=== PATIENT | female | born 1990 | race Caucasian/White ===

== ENCOUNTER 2018-03-15 10:14 | Outpatient (CLI) | payer OTHER ==
--- NOTE | 2018-03-15 13:39 | ULT ---
PELVIC ULTRASOUND WITH DOPPLER: (transabdominal, transvaginal, murray scale, color flow, and spectral Doppler) HISTORY: Early vaginal bleeding. FINDINGS: The uterus measure s16.7 x 7.7 x 10.2 cm. The right ovary measures 3.9 x 1.7 x 3.3 cm. The left ova ry measures 4.8 x 1.7 x 2.3 cm. Flow is demonstrated to both ovaries. A single live intrauterine gestation is seen with measurements corresponding to an estimated gestatio nal age of 10 weeks 4 days and VALARIE at 10/07/2018. The crown-rump length measures 3.18 cm. Gestationa l sac diameter 5.26 cm and yolk sac diameter 0.42 cm. heart rate measures 168 b.p.m. No free fluid is seen in the cul-de-sac. No subchorionic hemorrhage is seen. IMPRESSION: Single live intrauterine of 10 weeks 4 days estimated gestational age and estimated date of delivery at 10/07/2018. POS: [facility]
== END 2018-03-15 10:15 | disposition home or self-care (01) ==
LOC: ULT 10:14
PROVIDERS: ATTEND Midwife
DX: Z34.91 Encounter for supervision of normal pregnancy, unspecified, first trimester (principal); O20.9 Hemorrhage in early pregnancy, unspecified; Z3A.10 10 weeks gestation of pregnancy
CPT/HCPCS: 76856; 93976

== ENCOUNTER 2018-09-27 20:17 | Inpatient (IN) | payer OTHER ==
[~2018-09-27 20:17] MED LIST: Dexamethasone 20 MG/5 ML VIAL ONE; Ketorolac Tromethamine 30 MG/ML VIAL ONE; Ondansetron PF 4 MG/2 ML Vial ONE; Oxytocin 10 UNITS/ML VIAL ONE; PHENYLEPHRINE-NS 100 MCG/ML 10 ML SYRINGE ONE; PROPOFOL 200 MG/20 ML VIAL ONE; Phenylephrine HCL 10 MG/ML VIAL ONE; Succinylcholine Chloride 20 MG/ML 10 ml SYRINGE FS ONE
[2018-09-27] MEDS ORDERED: Ondansetron PF 4 MG/2 ML Vial IVP PRN ×2 (20:54→22:38)
[2018-09-27 20:59] VITALS: BMI 35.6
[2018-09-27] MEDS ORDERED: Bicitra 30 ML UDCUP PO SCH (21:00)
[2018-09-27] MEDS ORDERED: Lactated Ringer's 1,000 ML IV SCH ×2 (21:00)
[2018-09-27] MEDS ORDERED: CEFAZOLIN 2 GM in Premix Bag 1 BAG IVPB SCH (21:00)
[2018-09-27] MEDS ORDERED: Fentanyl 100 MCG/2 ML VIAL ONE ×2 (21:36→21:56)
[2018-09-27 21:41] LABS: Mean Corpuscular HGB CONC 34.6 g/dL (32.0-36.0); Mean Corpuscular Hemoglobin 31.3 pg (27.0-31.0); Mean Corpuscular Volume 90.2 fL (78.0-98.0); Mean Platelet Volume 8.6 fL (7.4-10.4); Platelet Count 105 thou/uL (130-400); RBC Distribution Width 13.6 % (11.5-14.5); Red Blood Cell (RBC) Count 4.15 mill/uL (4.20-5.40); White Blood Cell (WBC) Count 6.7 thou/uL (4.8-10.8)
[2018-09-27] MEDS ORDERED: Ondansetron PF 4 MG/2 ML Vial ONE (21:42)
[2018-09-27] MEDS ORDERED: Ketorolac Tromethamine 30 MG/ML VIAL ONE (21:42)
[2018-09-27] MEDS ORDERED: Dexamethasone 4 mg/ml Vial ONE (21:42)
[2018-09-27] MEDS ORDERED: Rocuronium Bromide 10 MG/ML (10ML VIAL) ONE (21:46)
[2018-09-27] MEDS ORDERED: Oxytocin 10 UNITS/ML VIAL ONE ×2 (21:49→22:11)
[2018-09-27] MEDS ORDERED: Morphine 4 MG/ML VIAL ONE ×2 (21:57→22:07)
[2018-09-27 22:18] LABS: Syphilis Antibody Nonreactive (Nonreactive); Syphilis Antibody Index 0.06 S/CO (<1.00 Non-Reactive)
[2018-09-27 22:36] LABS: Actual Bicarbonate (HCO3a) 24.9 mEq/L (22-28); Base Excess (BEa) -7.1 mEq/L (-2.0 to +3.0)
[2018-09-27] MEDS ORDERED: Ondansetron HCl/PF 4 MG/2 ML Vial IVP PRN (22:38)
[2018-09-27] MEDS ORDERED: Zolpidem Tartrate 5 MG TAB PO PRN (22:38)
[2018-09-27] MEDS ORDERED: diphenhydrAMINE 50 MG/ML VIAL IM PRN (22:38)
[2018-09-27] MEDS ORDERED: Promethazine HCl 25 MG/ML VIAL IM PRN (22:38)
[2018-09-27] MEDS ORDERED: L&D-Morphine 4 MG/ML VIAL SLOW IVP PRN (22:38)
[2018-09-27] MEDS ORDERED: Naloxone HCl 0.4 mg/ml Vial IV PRN (22:38)
[2018-09-27] MEDS ORDERED: diphenhydrAMINE 50 MG/ML VIAL IVP PRN (22:38)
[2018-09-27] MEDS ORDERED: diphenhydrAMINE 25 MG CAP PO PRN (22:38)
[2018-09-27] MEDS ORDERED: Meperidine HCl/PF 25 MG/ML VIAL SLOW IVP PRN (22:38)
[2018-09-27] MEDS ORDERED: HYDROmorphone 2 MG/ML VIAL SLOW IVP PRN (22:38)
[2018-09-27] MEDS ORDERED: HYDROmorphone 10 mg/100 ml CADD IVPB PRN (22:38)
[2018-09-27 22:39] LABS: Actual Bicarbonate (HCO3v) 24 mEq/L (22-28); Base Excess -3.3 mEq/L (-2.0 to +3.0); pH (Cord, venous) 7.28 (7.32-7.43)
[2018-09-27] MEDS ORDERED: Communication Order-Pharmacy FS SCH (22:45)
[2018-09-28 00:02] LABS: HBSAg Index 0.29 S/CO (0-0.99); Hep B Surf Ag Non-Reactive S/CO (NonReactive)
[2018-09-28] MEDS ORDERED: Lanolin Ointment 7 GM TUBE TOP PRN (01:42)
[2018-09-28] MEDS ORDERED: NS / Oxytocin 40 units/1000ml 1,000 ML IV SCH (01:42)
[2018-09-28] MEDS ORDERED: HYDROcodone/Acetaminophen 5/325 mg Tablet PO PRN ×2 (01:42)
--- NOTE | 2018-09-28 04:51 | OP ---
DATE OF PROCEDURE: 09/27/2018 DATE OF ENCOUNTER: 09/27/2018. PREOPERATIVE DIAGNOSES: 1. Intrauterine at 38 weeks. 2. Spontaneous rupture of membranes. 3. Labor with advanced cervical dilation. 4. Footling breech. POSTOPERATIVE DIAGNOSES: 1. Intrauterine at 38 weeks. 2. Spontaneous rupture of membranes. 3. Labor with advanced cervical dilation. 4. Footling breech. PROCEDURES PERFORMED: Lower transverse section. ANESTHESIA: General. RECYCLE WORKER: Dr. Holman, second-year resident. QUANTITATIVE BLOOD LOSS: 1235 mL. COMPLICATIONS: More blood loss than average and complicated lie. COUNTS: Correct. CONDITION: Stable to recovery room. FINDINGS: Female delivered ultimately in nancy breech presentation with Apgars of 2, 6, and 8; weight 9 pounds. SPECIMENS: Blood gas to Pathology, cord blood, placenta sent with book or script editor per the patient request. DESCRIPTION OF PROCEDURE: Ms. Kailee Connelly is a 28-year-old, G2, P1 female, with an intrauterine between 37 and 38 weeks gestation, who presented to Labor and Delivery after rupture of membranes at 5 o'clock and breech presentation. The patient was counseled for a primary . On cervical exam, the patient was noted to be footling breech with a cervical dilation of about 6 cm on my exam and reported up to 8 cm on nursing exam. After being counseled to the risks and benefits of versus breech delivery, we proceeded with . The patient was placed under general anesthesia given the urgency of the situation and placed in a dorsal supine position with a leftward tilt. She was prepared and draped in normal sterile fashion. A hysterotomy was made and carried down to the level of the fascia. Fascia was incised and the fascial incisions were extended laterally with Gil scissors. With the aid of Minnie clamps, the fascia was then dissected off sharply and bluntly inferiorly and superiorly off the underlying rectus muscles. The peritoneal cavity was then entered into bluntly and extended bluntly. An Larry O retractor was then inserted as well as a moist lap for bowel retraction. A bladder flap was created and a hysterotomy was performed in the lower uterine segment. Upon entry into the uterus, after manual evaluation by this time, the fetus was noted to have the back at the level of the abdomen, presenting with difficulty getting to the rump as leg to become extended into the vaginal canal. With the aid of a vaginal hand, the rump was then reintroduced into the lower uterine segment and delivered through the hysterotomy without difficulty. Prior to this, there was some difficulty in trying to establish positioning and the best approach to delivery. This occurred for a couple of minutes prior to the vaginal hand assistance. Infant was delivered to the sterile field and cords were clamped and cut and the was handed off to the waiting attendant for evaluation. Attention was then placed back to the uterus. Of note, the Larry O retractor was removed prior to delivery of the baby given the complications and manipulation in an effort to deliver this complicated lie. The hysterotomy was then identified and grasped with ring forceps and an effort to identify the borders of the hysterotomy, of note the uterine vessels had been extended into the patient's left. This was closed first with a [id number], with 1-0 Monocryl. The hysterotomy was then closed in a running locked suture followed by imbricating stitch. Review of the hysterotomy noted the right uterine artery was also bleeding, but to a much lesser extent. This was also contained with a [id number] suture and then 2nd [id number] sutured in the line of the hysterotomy. The abdomen was then irrigated, cleared of all clot and debris and an inspection of the hysterotomy and it was noted to be hemostatic. With good hemostasis now confirmed, the uterus was then returned back to the abdomen, as it had been removed for evaluation and closure. The fascia was then closed with 0 Vicryl in a running suture. The subcutaneous fat was closed with 2-0 plain gut in a running suture. The skin was closed with 4-0 Monocryl in a running suture. The procedure was completed at this point, and the patient was then extubated and taken to recovery room in stable condition. Job ID: [id number]
[2018-09-28 06:13] LABS: Hemoglobin 10.6 g/dL (12.0-16.0); Mean Corpuscular HGB CONC 34.6 g/dL (32.0-36.0); Mean Corpuscular Hemoglobin 31.6 pg (27.0-31.0); Mean Corpuscular Volume 91.3 fL (78.0-98.0); Platelet Count 106 thou/uL (130-400); RBC Distribution Width 13.6 % (11.5-14.5); Red Blood Cell (RBC) Count 3.37 mill/uL (4.20-5.40); White Blood Cell (WBC) Count 11.3 thou/uL (4.8-10.8)
--- NOTE | 2018-09-28 07:28 | PRG ---
DATE OF SERVICE: 09/28/2018 SUBJECTIVE: The patient is postoperative day 1 status post a primary for footling breech presentation in labor and ruptured. The patient reports she is having decent pain control with the [employer] pump, having decreased lochia and is tolerating liquids. PHYSICAL EXAMINATION: VITAL SIGNS: Blood pressure is 114/65, temperature 98.3, pulse is 72, respiratory rate of 20, saturating 97% on room air. GENERAL: She appears to be in no acute distress. She is alert, oriented, cooperative, and pleasant to interact with. HEAD: Normocephalic atraumatic. ABDOMEN: Incision is clean, dry, and intact. Fundus is firm. LABORATORY DATA: Post-delivery hemoglobin is 10.6, hematocrit 30.8, platelets 106,000. ASSESSMENT AND PLAN: The patient is postop day 1 status post primary for breech presentation and labor, on [employer] pump for pain control. We will continue in-house postoperative care. Anticipate discharge in the next couple days. Job ID: [id number]
[2018-09-28] MEDS ORDERED: Adacel (T-DAP) 0.5 ML SYRINGE IM ONE (09:00)
[2018-09-28] MEDS: Ferrous Sulfate 325 MG TAB PO SCH ×2 (09:08→19:18)
[2018-09-28] MEDS: Prenatal Vitamin 1 TAB PO SCH (09:09)
[2018-09-28] MEDS: Docusate Calcium (SURFAK) 240 MG CAP PO SCH ×2 (09:09→22:01)
[2018-09-28] MEDS: Simethicone Chewable 80 MG TAB PO PRN ×2 (09:09→22:02)
[2018-09-28] MEDS: HYDROcodone/Acetaminophen 5/325 mg Tablet PO PRN ×3 (11:13→19:16)
[2018-09-28] MEDS: Ibuprofen 800 MG TAB PO SCH ×3 (11:15→23:49)
[2018-09-29] MEDS: HYDROcodone/Acetaminophen 5/325 mg Tablet PO PRN ×5 (00:28→23:10)
--- NOTE | 2018-09-29 03:24 | PDOC.PP ---
Post Progress Note Post Day #: POD3 Subjective: Just now ambulating. Tolerating liquids. Baby in NICU on NC. PO intake tolerated: yes Flatus: no Ambulation: yes Vital Signs (12 hours) Temp Pulse Resp BP Pulse Ox 09/29/18 00:28 98.5 F 87 18 108/59 L 09/28/18 20:23 96 09/28/18 20:00 99.2 F 86 20 111/60 96 09/28/18 17:21 98.5 F 72 20 106/58 L Weight Weight 112.491 kg - Physical Examination General: NAD Respiratory: non-labored breathing Abdominal: no distention Skin: CS incision dry & intact Psychiatric: normal affect Result Diagrams: 09/28/18 05:29 Additional Labs: Post Labs Blood Type O POSITIVE 09/27/18 21:14 Hep Bs Antigen Non-Reactive S/CO (NonReactive) 09/27/18 21:14 - Assessment/Plan Stable postop. Advance diet. Ambulate. Anticipate DC on 09/30/18.
[2018-09-29] MEDS: Ibuprofen 800 MG TAB PO SCH ×3 (05:46→21:24)
[2018-09-29] MEDS: Simethicone Chewable 80 MG TAB PO PRN (05:50)
[2018-09-29] MEDS: Prenatal Vitamin 1 TAB PO SCH (10:23)
[2018-09-29] MEDS: Ferrous Sulfate 325 MG TAB PO SCH ×2 (10:23→18:20)
[2018-09-29] MEDS: Docusate Calcium (SURFAK) 240 MG CAP PO SCH ×2 (10:23→21:24)
[2018-09-29] MEDS: diphenhydrAMINE 30 GM TUBE TOP PRN (17:37)
[2018-09-30] MEDS: diphenhydrAMINE 30 GM TUBE TOP PRN (01:25)
[2018-09-30] MEDS: Ibuprofen 800 MG TAB PO SCH ×2 (05:48→13:43)
[2018-09-30] MEDS: HYDROcodone/Acetaminophen 5/325 mg Tablet PO PRN (05:50)
--- NOTE | 2018-09-30 07:41 | DIS ---
DATE OF ADMISSION: 09/27/2018 DATE OF DISCHARGE: 09/30/2018 ADMITTING DIAGNOSES: 1. Spontaneous rupture of membranes. 2. Labor. 3. Footling breech presentation. PROCEDURE: Primary lower transverse section with breech extraction. CONSULTATIONS: None. HOSPITAL COURSE: The patient is a 28-year-old, G2, P1, female, who had been receiving care by Sundeep Singh, local nurse overhead crane inspector. However, upon rupture of membranes and suspicion for breech presentation, the patient presented to the hospital for care. When she arrived, the patient was having contractions. Cervical exam was noted to be 8 cm dilated with . The patient underwent a primary . Please refer to the operative note for complete details. Her course has been uncomplicated. hemoglobin 10.6, hematocrit 30.8, and platelets 106,000. PHYSICAL EXAMINATION: VITAL SIGNS: Today, on postoperative day 3; blood pressure has been 114/65, temperature 98.3, pulse of 88, respiratory rate of 18, and saturating 98% on room air. GENERAL: She appears to be in no acute distress. She is alert and oriented, cooperative and pleasant to interact with. HEENT: Head is normocephalic, atraumatic. ABDOMEN: Fundus is firm. EXTREMITIES: Nontender, nonedematous. Incision is clean, dry, and intact with Silvercel dressing. DISCHARGE INSTRUCTIONS: The patient is being discharged to home. She has prescriptions for ibuprofen 800 mg to be taken 3 times a day as needed for pain and tramadol 50 mg to be taken every 4 hours as needed for pain #20. She has instructions to follow up with Ms. Roosevelt Beltran for her postoperative care and care. She also has instructions to follow up with [facility] [place] if necessary. She has been counseled to seek medical attention if she experiences increasing pain or bleeding, fever, increasing redness or drainage from the incision site. Job ID: [id number]
[2018-09-30] MEDS: Ferrous Sulfate 325 MG TAB PO SCH (09:00)
[2018-09-30] MEDS: Docusate Calcium (SURFAK) 240 MG CAP PO SCH (09:50)
[2018-09-30] MEDS: Prenatal Vitamin 1 TAB PO SCH (09:50)
[2018-09-30 10:40] VITALS: BP 128/65; TEMP 98.1
== END 2018-09-30 14:25 | disposition home or self-care (01) | DRG 788 ==
LOC: L&D/OP 20:17 → L&D 21:23 → 3SW 09-28 01:38
PROVIDERS: ADMIT Obstetrics & Gynecology; ATTEND Obstetrics & Gynecology
PROC: 10D00Z1 Extraction of Products of Conception, Low, Open Approach (ICD-10-PCS; principal; 2018-09-27)
DX: O32.8XX0 Maternal care for other malpresentation of fetus, not applicable or unspecified (principal); Z3A.38 38 weeks gestation of pregnancy; Z37.0 Single live birth
CPT/HCPCS: 36415; 51702; 59025; 59412; 76815; 82805; 85027; 86780; 86850; 86900; 86901; 87340; 99285; J0690; J1100; J1885; J2270; J2405; J2590; J2704; J3010; J3105; Q0163